=== PATIENT | female | born 1990 | race Caucasian/White ===

== ENCOUNTER 2024-07-10 10:57 | Emergency (ER) | payer MEDICAID, SELFPAY ==
[2024-07-10 10:58] VITALS: BP 131/67; PULSE 60; RESP 16; TEMP 36.6; O2SAT 100; BMI 44.1
--- NOTE | 2024-07-10 12:18 | EKG12_ITS ---
Test Reason : GENERAL Blood Pressure : */* mmHG Vent. Rate : 58 BPM Atrial Rate : 58 BPM P-R Int : 136 ms QRS Dur : 82 ms QT Int : 422 ms P-R-T Axes : 45 32 54 degrees QTcB Int : 414 ms Sinus bradycardia with sinus arrhythmia Otherwise normal ECG Confirmed by VALENTIN ATKINS, NURY ([id number]), editor index CHARLA RAMOS ([id number]) on 07/16/2024 11:15:26 AM Referred By: Confirmed By: NURY HANSON MD
--- NOTE | 2024-07-10 12:18 | EX.ED.DYSGE1 ---
HPI History of Present Illness Chief Complaint: Hypoglycemia Informant: patient and EMS Narrative Narrative: 44-year-old female had a hypoglycemic episode while she was at work. She ate something earlier this morning, and has drink fluids this morning. She states she felt this coming on feeling very shaky and weak, similar to prior hypoglycemic episodes. She is not a diabetic. She has never had high blood sugar before. She states she does have a glucometer because this exact thing has happened before, and she checked her sugar when she was feeling poorly and it was 52. She was given glucose tablets and some pineapple juice but shortly after drinking and eating those, while she was sitting down she passed out briefly. EMS was called. At the time they got there she was feeling better they checked her blood sugar and it was 190. She says she feels better now except just a little tired. She was nauseated when she awoke but that is gone. Denies any recent illness or medication changes. Patient has a gastric bypass, states these hypoglycemic episodes been occurring since then but were not before. [facility] Medical History Cholecystectomy planned Home Medications ?Medication ?Instructions ?Recorded ?Last Taken ?Type bupropion HCl 100 mg tablet 150 mg PO BID 07/10/24 Unknown History calcium 250 mg tablet 250 mg PO DAILY 07/10/24 Unknown History cholecalciferol (vitamin D3) 50 50 mcg PO DAILY 07/10/24 Unknown History mcg (2,000 unit) capsule (D3-2000) iron 50 mg iron tablet 1 tab PO DAILY 07/10/24 Unknown History loratadine 10 mg tablet (Claritin) 10 mg PO DAILY 07/10/24 Unknown History multivitamin (Daily Multi-Vitamin 1 tab PO DAILY 07/10/24 Unknown History tablet) omeprazole 40 mg capsule,delayed 40 mg PO DAILY 07/10/24 Unknown History release zinc 10 mg tablet 20 mg PO DAILY 07/10/24 Unknown History Allergy/AdvReac Type Severity Reaction Status Date / Time iron (From Venofer) Allergy Mild Other Verified 07/10/24 11:04 Surgical History Gastric bypass status for obesity Social History Smoking Status: Former smoker ROS ROS ED Constitutional Constitutional ED: Reports as per HPI and malaise; Denies chills or fever(s) Eyes Eyes: Denies change in vision or diplopia ENT ENT ED: Denies rhinorrhea or sore throat Cardiovascular Cardiovascular: Reports syncope; Denies chest pain or palpitations Respiratory/Chest Respiratory/Chest: Denies cough or dyspnea Gastrointestinal Gastrointestinal: Denies abdominal pain, diarrhea, nausea or vomiting Genitourinary Genitourinary ED: Denies dysuria or hematuria Musculoskeletal Musculoskeletal: Denies back pain or neck pain Integumentary Denies abscess or rash Neurologic Neurologic: Denies headache(s), paresthesias or weakness Psychiatric Psychiatric: Denies anxiety or suicidal thoughts EXAM Physical Exam Const Vital Signs: 07/10/24 10:58 07/10/24 11:02 07/10/24 13:00 Temperature 97.9 F Temperature Source Oral Pulse Rate 60 79 Respiratory Rate 16 19 H Respiratory Effort Normal Non-Labored Respiratory Pattern Normal Blood Pressure 131/67 H 115/61 Blood Pressure Mean 88 79 Pulse Ox 100 98 Oxygen Delivery Method Room Air Room Air Positive well nourished and well developed General Appearance ED: well developed and NAD HEENT Reports moist mucous membranes normocephalic and atraumatic Eyes PERRL and EOMs intact bilaterally Neck full ROM and supple Resp normal respiratory effort and clear to auscultation bilaterally Cardio regular rate, regular rhythm and no murmurs GI non-tender and non-distended Auscultation: normoactive bowel sounds Palpation: soft Back/Spine no CVA tenderness General Back: other FROM Extremity normal to inspection General Extremety ED: Negative for edema, pulses abnormal or tenderness General Extremity: Negative for edema or pulses abnormal Neuro oriented x3, CN's II-XII intact bilaterally and no sensory deficits noted Sensorium / Orientation: awake and alert Motor Exam: strength 5/5 throughout Skin no rashes or lesions noted and no wounds MDM MDM MDM Narrative Medical decision making narrative: Performed an EKG, it is normal ruling out high-grade AV block. In the meantime patient was given something to eat, we did some sequential blood sugars, her initial was 68 and she was feeling a little shaky but not too bad, then later after eating is 142 and she feels back to normal. Her vital signs are normal. She looks well. She states she has an appointment with endocrinology for this exact issue coming up within the next month. For now I do not think we need to do any other testing emergently. She is comfortable with that plan. Lab Data Attestation: I reviewed the patient's lab results. Labs: Laboratory Results - last 24 hr 07/10/24 07/10/24 12:24 12:55 POC Glucose 68 L 142 H Rhythm Strip Rhythm Strip: Sinus Rhythm Rate: 60 Ectopy: None EKG Initial EKG: Attestation: I personally reviewed and interpreted this EKG as follows: Interpretation: Sinus Rhythm and No Acute Injury Pattern Comments: Nml axis & intervals; nml EKG Discharge Plan Triage Chief Complaint: Hypoglycemia ED Provider: Mac Boone Dx/Rx/DC Orders Clinical Impression: Hypoglycemia Instructions: ED Hypoglycemia, Nondiabetic Prescriptions: No Action bupropion HCl 100 mg tablet 150 mg PO BID omeprazole 40 mg capsule,delayed release(DR/EC) 40 mg PO DAILY loratadine [Claritin] 10 mg tablet 10 mg PO DAILY multivitamin [Daily Multi-Vitamin] Tablet 1 tab PO DAILY iron 50 mg iron tablet 1 tab PO DAILY cholecalciferol (vitamin D3) [D3-2000] 50 mcg (2,000 unit) capsule 50 mcg PO DAILY zinc 10 mg tablet 20 mg PO DAILY calcium 250 mg tablet 250 mg PO DAILY Primary Care Provider: Vic Martinez Referrals: Vic Martinez MD [Primary Care Provider] - As soon as possible Print Language: Ukrainian Disposition Disposition: Home, Self Care
[2024-07-10 12:41] LABS: Bedside Glucose 68 mg/dL (74-106)
[2024-07-10 13:00] VITALS: BP 115/61; PULSE 79; RESP 19; O2SAT 98
[2024-07-10 13:12] LABS: Bedside Glucose 142 mg/dL (74-106)
[2024-07-10 13:38] VITALS: BP 96/44; PULSE 78; RESP 24; TEMP 36.2; O2SAT 98
== END 2024-07-10 13:52 | disposition home or self-care (01) ==
PROVIDERS: Emergency Provider Emergency Medicine; PCP Family Medicine Adult Medicine; Visit Provider Emergency Medicine
DX: E16.2 Hypoglycemia, unspecified (principal); Z87.891 Personal history of nicotine dependence; Z79.899 Other long term (current) drug therapy
CPT/HCPCS: 82962; 93005; 99285